=== PATIENT | male | born 1940 | race Caucasian/White ===

== ENCOUNTER 2019-06-16 11:50 | Inpatient (IN) ==
--- NOTE | 2019-06-16 12:07 | EKG Report ---
Test Performed on : 06/16/2019 12:05:39 PM Test Reason : weakness Blood Pressure : / mmHG Vent. Rate : 059 BPM Atrial Rate : 059 BPM P-R Int : 178 ms QRS Dur : 086 ms QT Int : 424 ms P-R-T Axes : 063 -44 077 degrees QTc Int : 419 ms Sinus bradycardia. Left axis deviation Abnormal ECG No previous ECGs available Unconfirmed Result
[2019-06-16] MEDS ORDERED: NS 1,000 ML IV ONE (12:36)
[2019-06-16 13:16] LABS: BASO# 0.15 X1000 (0.0-0.2); BASO% 0.9 % (0.0-0.8); EOS# 0.09 X1000 (0.0-0.7); EOS% 0.6 % (0.0-10.0); HEMATOCRIT 44.5 % (42.0-52.0); HEMOGLOBIN 14.7 g/dL (14.0-18.0); IMM GRAN# 0.03 X1000 (0.0-0.04); IMM GRAN% 0.2 % (0.0-0.5); LYMPH# 2.11 X1000 (1.2-3.4); LYMPH% 13.4 % (20.5-51.1); MCH 28.7 PG (27-31); MCV 86.7 FL (81-99); MONO# 1.44 X1000 (0.11-0.59); MONO% 9.1 % (1.7-9.3); MPV 12.7 FL (7.4-10.4); NEUT# 11.97 X1000 (1.4-6.5); NEUT% 75.8 % (42.2-75.2); PLT 226 X1000 (130-400); RBC 5.13 XMIL (4.7-6.1); RDW 14.2 % (11.5-14.5); WBC 15.79 X1000 (4.8-10.8)
[2019-06-16 13:36] LABS: ALB/GLOB RATIO 1.7; ALBUMIN 3.8 g/dL (3.5-5.0); CALCIUM 9.8 mg/dL (8.8-10.2); CREATININE 1.7 mg/dL (0.7-1.2); POTASSIUM 4.7 mmol/L (3.5-5.1); TOTAL BILIRUBIN 0.85 mg/dL (0.20-1.00); TOTAL PROTEIN 6.1 g/dL (6.3-8.3)
--- NOTE | 2019-06-16 14:14 | Diag Imaging Result Doc PS360 ---
EXAM: CT HEAD W/O CONTRAST INDICATION: Vertigo TECHNIQUE: This exam was performed using automated exposure control, adjustment of mA or kV according to patient size, and/or use of iterative reconstruction technique. COMPARISON: 08/09/2014 FINDINGS: There is patchy low attenuation in the periventricular and subcortical white matter suggesting mild microangiopathy. It is probably slightly worse than the previous study in 2015. There is no definite acute infarct given the limited sensitivity of CT versus MRI. There is no discrete intracranial mass, mass effect, or intracranial hemorrhage. The surrounding soft tissues and bony structures are essentially unremarkable. The mastoid air cells and middle ear cavities appear to be clear. There is a stable subcutaneous lipoma at the neck on the left. IMPRESSION: Suggestion of mild white matter microangiopathy that appears slightly worse than the previous study in 2014. No definite acute intracranial pathology by CT. Electronically signed by Ander Horner 06/16/2019 2:11 PM
[2019-06-16 15:33] LABS: URINE SOURCE CLEAN CATCH
[2019-06-16 15:41] LABS: BILIRUBIN URINE NEGATIVE (NEGATIVE); BLOOD URINE TRACE (NEGATIVE); COLOR YELLOW; GLUCOSE URINE NEGATIVE (NEGATIVE); KETONE URINE NEGATIVE (NEGATIVE); LEUKOCYTES URINE TRACE (NEGATIVE); NITRITE URINE NEGATIVE (NEGATIVE); PH URINE 6.5; PROTEIN URINE 50 mg/dL (NEGATIVE); SP GRAVITY URINE 1.019; TURBIDITY URINE CLEAR (CLEAR); UR EPITHELIAL CELLS <10 /HPF (<10); URINE BACTERIA NEGATIVE /HPF; URINE RBC <10 /HPF (<10); URINE WBC <10 /HPF (<10); UROBILINOGEN URINE NORMAL (NORMAL)
--- NOTE | 2019-06-16 15:55 | Diag Imaging Result Doc PS360 ---
EXAM: CHEST-2 VIEWS HISTORY: dizziness TECHNIQUE: Two views COMPARISON: 08/13/2014 FINDINGS: The lungs are well expanded. The heart is not enlarged. The vessels are not distended. There are no infiltrates. No pleural effusions. IMPRESSION: No acute abnormality. Electronically signed by Dick Spears 06/16/2019 3:53 PM
--- NOTE | 2019-06-16 19:35 | PROVIDER DOCUMENTATION ---
This chart was entered by Bella Ramirez Scribe, acting as scribe for Natalia Nixon MD. HPI-General Adult - General Chief Complaint: Weakness Stated Complaint: DIZZINESS/FALLING Time Seen by Provider: 06/16/19 12:18 Source: patient, family () Allergies/Adverse Reactions: Patient Allergies Allergy/AdvReac Type Severity Reaction Status Date / Time latex Allergy Unknown Verified 06/16/19 12:47 Home Medications: Home Medication List Medication Instructions Recorded Confirmed Last Taken Type Finasteride 5 mg PO DAILY 08/09/14 06/16/19 06/16/19 History Hydrocodone/APAP 10 mg/325 mg 1 each PO Q4-6H PRN PRN 08/09/14 06/16/19 06/16/19 History [[place]-10] Meclizine HCl [Antivert] 25 mg PO TID PRN 08/09/14 06/16/19 06/16/19 History Montelukast [Singulair] 10 mg PO DAILY PRN 08/09/14 06/16/19 06/16/19 History Simvastatin 80 mg PO HS 08/09/14 06/16/19 06/15/19 History Tamsulosin [Flomax] 0.4 mg PO DAILY 08/09/14 06/16/19 06/16/19 History Allopurinol [Zyloprim] 1 tab PO DAILY 06/16/19 06/16/19 06/16/19 History Atenolol 1 tab PO DAILY 06/16/19 06/16/19 06/16/19 History Gabapentin 1 tab PO 4XDAY 06/16/19 06/16/19 06/16/19 History Omeprazole 1 cap PO DAILY 06/16/19 06/16/19 06/16/19 History Tadalafil [Cialis] 1 tab PO PRN PRN 06/16/19 06/16/19 Unknown History - History of Present Illness -Gen Adult Nature of Presenting Problems: 78 yowm with PMH of vertigo on meclizine, CKD, chornic back pain on [place], enlarged prostate with chronic LUTS, who presents to the ed with c/o dizziness, cough, and frequent falls for 1 week. He denies recent changes in his medi cations. He reports a sensation of movement even when sitting still. Patient's sister at bedside is concerned that he hasn't been drinking or eating well over the past week. He denies cp, sob, syncope, palpitations, recent travel or sick contacts. 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 worse with: movement Associated Symptoms: reports: cough, dizziness. denies: chest pain, fever/chills, headaches, nausea, shortness of breath, vomiting Similar Symptoms Previously?: Yes (hx of vertigo) Recently seen or treated by another doctor?: No Review of Systems - Adult - REVIEW OF SYSTEMS - ADULT Constitutional: denies: chills, fever, fatique Eyes: denies: blurred vision, double vision Ears, Nose, Mouth & Throat: reports: no symptoms reported Cardiovascular: denies: chest pain, palpitations Respiratory: reports: see HPI, cough. denies: shortness of breath, wheezing Gastrointestinal: denies: abdominal pain, diarrhea, nausea, vomiting Genitourinary: reports: see HPI Musculoskeletal: reports: see HPI, back pain (chronic) Integumentary: reports: no symptoms reported Neurological: reports: see HPI, dizziness/vertigo, loss of balance. denies: ataxia, headache/migraines, slurred speech, syncope Psychiatric: reports: no symptoms reported Endocrine: reports: no symptoms reported Hematologic/Lymphatic: reports: no symptoms reported Allergic/Immunologic: reports: no symptoms reported All Other Systems: Reviewed and Negative Past History - Adult - PAST MEDICAL HISTORY-ADULT Review of Records: reports: Old Records Reviewed, Nursing Assessment Review, Medications Reviewed, Social history reviewed & non-contributory. Major Childhood Illnesses: reports: denies history Cardiovascular: reports: HTN Respiratory: reports: denies history Gastrointestinal: reports: denies history Genitourinary: reports: other (prostate problems) Musculoskeletal: reports: chronic pain (takes norco 10 daily), neck/back injury Neurological: reports: denies history Psychiatric: reports: denies history Endocrine/Immune: reports: denies history Other Conditions: reports: denies history - PRIOR SURGERIES/PROCEDURES Surgical/Procedure History: reports: recent surgery (neck 12/03/18), back/neck (lumbar spine sx) - IMMUNIZATION STATUS Childhood Immunizations: See Nurse Assessment Flu Vaccine: See Nurse Assessment - FAMILY HISTORY Family History: reviewed, not pertinent - SOCIAL HISTORY Smoking: denies Substance Use: denies Living Situation: family Physical Exam-General - PHYSICAL EXAM-ADULT Initial Vital Signs Reviewed: Yes (BP-98/54) - CONSTITUTIONAL General Appearance: appears well, alert, no apparent distress, other (pt is tremulous on exam) - EYES Eyes: PERRL/EOMI - HEAD, EARS, NOSE, MOUTH & THROAT HENMT: normal ENT inspection, TMs normal. negative: moist mucous membranes (dry oral) - NECK Neck: non-tender, full range of motion, supple, normal inspection - RESPIRATORY Respiratory: chest non-tender, lungs clear, normal breath sounds - CARDIOVASCULAR Cardiovascular: normal peripheral pulses, regular rate, rhythm - CHEST (BREASTS) Chest/Breast: deferred - GASTROINTESTINAL (ABDOMEN) Abdominal Exam: normal bowel sounds, non tender, soft - GENITOURINARY Male Genitalia: deferred Rectal Exam: deferred Hemoccult Exam: deferred - LYMPHATIC Lymphatic: no adenopathy - MUSCULOSKELETAL Back Exam: no CVA tenderness, no vertebral tenderness Extremity: normal range of motion, non-tender, no pedal edema, no calf tenderness, normal capillary refill, pelvis stable, tenderness (bilateral knees with abrasions noted from past fall) - SKIN Integumentary: normal color, normal turgor, warm/dry - NEUROLOGIC Neurologic: grossly normal - PSYCHIATRIC Psych/Mental Status: normal mood/affect, normal thought content, normal thought process, oriented x 3 Progress - PLAN OF CARE/RESULTS Progress/Plan/Lab Results: Vital Signs - 8 hr 06/16/19 11:57 Temperature 98.2 F Pulse Rate 63 Respiratory Rate 20 Blood Pressure 98/54 O2 Sat by Pulse Oximetry 96 Orders Category Date Time Status Saline Loc NOW Care 06/16/19 12:[address] HEAD W/O CONTRAST [CT] Stat Exams 06/16/19 12:30 Ordered CBC WITH ELECTRONIC DIFF [HEME] Stat Lab 06/16/19 12:32 Uncollected CK PROFILE [SP CHEM] Stat Lab 06/16/19 12:37 Uncollected COMPREHENSIVE METABOLIC PANEL [CHEM] Stat Lab 06/16/19 12:32 Uncollected TROPONIN T HIGH SENSITIVITY Stat Lab 06/16/19 12:37 Uncollected URINALYSIS W/POSS RFLX CULT [URINALYSIS] Stat Lab 06/16/19 12:32 Uncollected Ns 1000 ml IV Bolus X1 Med 06/16/19 12:36 Ordered 0.9% Sodium Chloride Inj [Ns] 1,000 ml IV 999 mls/hr EKG [EKG] Stat Ther 06/16/19 12:02 Draft 1320: Positive orthostatic changes. 1400: Elevated troponin, no acute ekg changes, patient denies cp. Result Diagrams: 06/16/19 13:00 06/16/19 13:00 - REASSESSMENT Reassessment #1 Time Reassessed: 15:30 Status: unchanged Reassessment #2 Time Reassessed: 17:50 (Unsteady gait, patient and family requesting admission for PT/Rehab and due to concern for frequent falls as patient lives alone) Status: unchanged Reassessment #3 Time Reassessed: 19:30 (Repeat ekg unchanged, elevated troponin trending down, elevation possibly 2/2 CKD, will proceed with admission to observation ) - EKG 1 Time of EKG reading by physician:: 12:10 EKG Read and Signed by:: Natalia Nixon EKG Interpretation (*Must complete 3 of following elements*): Abnormal Rate: 59 Rhythm: sinus Leroy: left [place] Interval: normal Prior EKG Comparison: no prior EKG (When compared to telemetry strips form 2015, no significant change noted) 2 Time of EKG reading by physician:: 18:20 EKG Read and Signed by:: Natalia Nixon EKG Interpretation (*Must complete 3 of following elements*): Abnormal Rate: 61 Rhythm: NSR Leroy: left [place] Interval: normal Prior EKG Comparison: unchanged from prior - CT/MRI 1 CT Study: Head Impression: See EMR Report (EXAM: CT HEAD W/O CONTRAST INDICATION: Vertigo TECHNIQUE: This exam was performed using automated exposure control, adjustment of mA or kV according to patient size, and/or use of iterative reconstruction technique. COMPARISON: 08/09/2014 FINDINGS: There is patchy low attenuation in the periventricular and subcortical white matter suggesting mild mi croangiopathy. It is probably slightly worse than the previous study in 2015. There is no definite acute infarct given the limited sensitivity of CT versus MRI. There is no discrete intracranial mass, mass effect, or intracranial hemorrhage. The surrounding soft tissues and bony structures are essentially unremarkable. The mastoid air cells and middle ear cavities appear to be clear. There is a stable subcutaneous lipoma at the neck on the left. IMPRESSION: Suggestion of mild white matter microangiopathy that appears slightly worse than the previous study in 2015. No definite acute intracranial pathology by CT. Electronically signed by Ander Horner 06/16/2019 2:11 PM 06/16/19 1411 Int erpreting Physician: Ander Horner MD Dictated Date/Time: 06/16/19 1410 cc: Natalia Nixon MD; Quincy Marroquin MD) - CONSULTS/PCP/HOSPITALIST Notification #1 *Consult/PCP/Hospitalist*: Dr. Gentile Time Discussed: 19:49 Consult Disposition: Admit (To observation) Departure - Departure Date of Disposition Decision: 06/16/19 Time of Disposition Decision: 19:30 DIAGNOSIS: Vertigo, Dehydration, Orthostatic dizziness, Elevated troponin, Frequent falls, Debility CKD (chronic kidney disease) Qualifiers: Chronic kidney disease stage: stage 3 (moderate) Qualified Code(s): N18.3 - Chronic kidney disease, stage 3 (moderate) Leukocytosis Qualifiers: Leukocytosis type: unspecified Qualified Code(s): D72.829 - Elevated white blood cell count, unspecified Disposition: ADMITTED INPATIENT 09 Certified Medical Emergency: Emergent Condition: Stable Referrals and Follow-Ups: Quincy Marroquin MD [Primary Care Provider] - - Critical Care Note This patient required my direct & personal management of CC.: No Attestation - Physician/ EDITH Attestation Patient care was provided by Advanced Practice Provider:: No The physician spent face to face time with patient:: Yes Advanced Practice Provider documentation review:: Supervising physician onsite and consulted in the evaluation and care of this patient. The physician did have a face to face encounter with the patient. This chart was documented by the indicated scribe, (Bella Ramirez Scribe) and accurately reflects the services I performed and decisions made by me, Natalia Nixon MD, as attested by the provider's signature.
[2019-06-16] MEDS ORDERED: ANTIVERT PO ONE (19:47)
[2019-06-16] MEDS ORDERED: XYLOCAINE 2% JELLY UROJECT TOP ONE (21:16)
[2019-06-16] MEDS ORDERED: NORCO-10 PO ONE (21:20)
[2019-06-16] MEDS ORDERED: NORCO-7.5 PO ONE (21:22)
[2019-06-16 21:55] LABS: INR 1.14; PROTIME 14.8 Seconds (11.0-16.0); PTT 29.8 Seconds (22.3-41.8)
[2019-06-17] MEDS: NS 1,000 ML IV SCH ×2 (00:56→15:53)
[2019-06-17] MEDS: ROCEPHIN 1 GM in NS 50 ML IV SCH ×2 (01:10→23:30)
[2019-06-17] MEDS ORDERED: ZOFRAN IV PRN (01:28)
--- NOTE | 2019-06-17 04:17 | HISTORY AND PHYSICAL ---
PRIMARY CARE PROVIDER: Dr. Marroquin in [place], [place]. DATE AND TIME: 06/16/2019 at 2100. CHIEF COMPLAINT: Dizziness. HISTORY OF PRESENT ILLNESS: Mr. Klein is an 78-year-old male who presented to the ER complaining of dizziness. The patient states that approximately a little over 1 week ago that he began having dizziness. He reports that this when he goes from a sitting to a standing position or when he has been lying down and tries to get to a sitting or standing position. The patient states he does have a history of vertigo and does take meclizine for this. He states that normally when this starts, he takes his meclizine and this does improve, though even with taking his meclizine his dizziness continued to the point where he began to have episodes when he would go from a lying or sitting to a standing position, he will become dizzy and very weak and would fall. He reports that he fell once today, a few times yesterday and has fallen a few times over the last week. The patient denies any recent new medications or any changes to his current medications. He did report that he did have [id number] use of a medicine called Prevagen, though other than this, he denies any other [id number] medication use. He denies any headache. He denies any visual changes. Other than the weakness he experiences upon sitting and standing, he denies any other weakness. He reports this is a generalized weakness. This is not unilateral. He denies any numbness or tingling. He as well as his sister denies noticing him having any speech disturbance. The patient does have a history of back surgery and did develop a left footdrop after this surgery and there is a little deficit in his gait related to this, though this is not of new onset. His sister, who is at bedside, denies noticing him having any new changes in his gait or him giving to one side or leaning to one side either when walking, standing, or sitting. He denies any chest pain. He denies any shortness of breath or cough. He denies any upper respiratory symptoms, sinus congestion, pressure, or drainage. He denies any ear pain. He did report that he felt as though he was hearing a buzzing sound in his right ear. He denies any nausea, vomiting, or diarrhea. He denies any hematochezia or melena. The patient was not reporting abdominal pain, though was reporting a lot of pressure in his lower abdomen. He reported to me that he had tried to use the urinal a few times in the ER since he gave his initial urine sample, though could not urinate. The patient does report that he has been having urinary frequency and does get up 3 to 4 times in the middle of the night to urinate, though was only passing small amounts at a time. He states he is also straining to go as well. He does have a history of BPH and urinary retention in the past. He has had to have Barrow catheters for periods of time secondary to this. He denies any pain, numbness, tingling, or swelling in extremities. He denies any fever, body aches, or chills. Upon my evaluation in the ER, the patient was resting in the ER stretcher. He was in no acute distress. He was awake, alert, and able to answer questions appropriately. The patient was stating he was quite uncomfortable. He was experiencing a lot of lower abdominal pressure. Given this and his history of BPH, we did go ahead and obtain a bladder scan which did show that he had 638 mL of urine in his bladder. We did try to get the patient to attempt to use the urinal one last time, though he was unable to urinate. We did place a Barrow catheter and, since that time, the patient's abdominal pressure has resolved. He did have some leukocytosis noted with a white blood cell count of 15,790. BUN was 26, creatinine was 1.7 with a GFR of 39. Unfortunately, the patient has not had any recent labs performed here since 2014. It does look as though he may have a underlying history of chronic kidney disease, and he does report this, though we are not sure what his baseline is at this time. All other electrolytes within normal limits. CK was 97 and troponin was 43. Initial EKG noted sinus bradycardia at a rate of 59 and repeat was normal sinus rhythm at a rate of 61. Initial blood pressure was 98/54 with a MAP of 69. They did perform orthostatics in the ER, which the patient did tilt. He went from a lying blood pressure of 174/71 to a sitting blood pressure of 111/50. They did provide a 1 L normal saline bolus in the ER. Urinalysis did show trace blood and trace leukocytes and urine culture has been ordered. They did perform a chest x- ray which showed no acute abnormalities. They performed a CT of the head noncontrast which showed no definite acute intracranial pathology. The patient was placed inpatient admission for further treatment evaluation of his dizziness and weakness. REVIEW OF SYSTEMS: A 14-point review of systems was conducted with the patient and all were negative except for pertinent positives mentioned above in HPI. PAST MEDICAL HISTORY: 1. Hypertension. 2. Benign prostatic hypertrophy. 3. Vertigo. 4. Orthostatic hypotension. 5. 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 6. Kidney stones. 7. Questionable history of chronic kidney disease. 8. Hyperlipidemia. 9. Gastroesophageal reflux disease. 10. Gout. PAST SURGICAL HISTORY: 1. Cervical fusion. 2. Low back surgery, which consisted of a lumbar decompressive laminectomy with diskectomy at L3- L5 in 2014. SOCIAL HISTORY: There is no known history of tobacco, alcohol or illicit drug use. The patient states that he does live alone, though does have family that comes by and is able to check on him. This includes his sister and a friend. The patient does require ambulatory assistance of a cane and a walker at times. FAMILY HISTORY: Positive for his mother having a history of congestive heart failure. His father had a history of coronary artery disease and did have a myocardial infarction in his 60s. He has one brother who has a history of coronary artery disease and does have sisters who have history of renal cancer, breast cancer, and leukemia. ALLERGIES: Patient does report allergies to latex. HOME MEDICATIONS: 1. Allopurinol 300 mg p.o. daily. 2. Atenolol 100 mg p.o. daily. 3. Finasteride 5 mg p.o. daily. 4. Gabapentin 300 mg p.o. 4 times a day. 5. [place] 10 mg 1 tablet p.o. q.4-6 hours p.r.n. The patient states that he usually takes this just 3 times a day. 6. Antivert #25 mg p.o. t.i.d. p.r.n. for dizziness. 7. Singulair 10 mg p.o. daily p.r.n. 8. Omeprazole 40 mg capsule p.o. daily. 9. Simvastatin 80 mg p.o. at bedtime. 10. Cialis 5 mg tablet half a tablet p.o. p.r.n. 11. Flomax 0.4 mg p.o. daily. DIAGNOSTIC DATA: White blood cell count is 15,790, hemoglobin 14.7, hematocrit 44.5, platelet count is 226,000. PT 14.8, INR 1.14, PTT is 29.8. Sodium 139, potassium 4.7, chloride 100, serum bicarbonate is 24, BUN 26, creatinine 1.7 with a GFR 39, glucose 121, calcium 9.8, magnesium 2. Liver function tests within normal limits. CK 97, troponin T high sensitivity was 43 with a repeat of 35. Plasma lactate of 1. Urinalysis was obtained via clean catch and was positive for protein, trace blood, trace leukocytes. It was negative for glucose, ketones, nitrites, white blood cells, or bacteria. EKG initial showed sinus bradycardia at a rate of 59 with a QTc of 419. Repeat EKG did show normal sinus rhythm at a rate of 61. Chest x-ray showed no acute abnormality. CT of the head without contrast showed suggestion of mild white matter microangiopathy that appears slightly worse than on the previous study in 2015, but no definite acute intracranial pathology per CT. This report was per Radiology. PHYSICAL EXAMINATION: VITAL SIGNS: Most recent vital signs I have are temperature 98.2 degrees, heart rate 56, respirations 18, blood pressure is 186/76 with oxygen saturation of 95% on room air. GENERAL: Mr. Klein is a pleasant 78-year-old male. He was resting in the ER stretcher. He is in no acute distress. He was awake, alert and answered questions appropriately. HEENT: Head is atraumatic, normocephalic. Pupils are equal, round, reactive to light, were 3 mm bilaterally and brisk. EOMs are intact. Bilateral tympanic membranes were intact, pearly tejada in color, have positive light reflexes, and there is no erythema, lesions, or exudates noted. Oral mucosa is moist. Oropharynx is clear. NECK: Supple. Trachea midline. No carotid bruits noted upon auscultation bilaterally. CARDIOVASCULAR: Patient has S1-S2 present. No gallops or rubs appreciated, though the patient may have a very slight 1/6 systolic murmur noted. He does have a slightly bradycardic rate in the high 50s that is regular. ABDOMEN: Soft, nontender, nondistended. Bowel sounds are present in all 4 quadrants and were normoactive. EXTREMITIES: No cyanosis or edema noted. Pulse, motor and sensory are intact in all 4 extremities. Radial and pedal pulses are 2+ bilaterally. INTEGUMENTARY: The patient's skin is pink, warm, and dry. NEUROLOGICAL: Patient is alert and oriented to person, place, time, and situation. He is able to move all extremities. He does have equal muscle strength and hand grasps bilaterally. The patient does have equal muscle strength in his legs bilaterally though does have noted left footdrop. This is not of new onset. This has been present since his low back surgery. He has no arm drift noted. The patient does appear to have maybe a slightly drooped eyelid on the right and a very small facial droop noted at the corner of the right side of his mouth, though his sister states this is not of new onset and that this has been present. The patient denies any previous history of known stroke. ASSESSMENT AND PLAN: 1. Dizziness/weakness. This could be orthostatic in nature. The patient does have a history of orthostatic hypotension. He also does take quite a few medicines that could be contributing to his weakness, dizziness and orthostatic hypotension. We have held these medicines at this time. We will continue to rule out any further possible cardiac or neurologic involvement. We will repeat a series of cardiac enzymes. We will repeat EKG in the morning. We have also ordered for him to have echocardiogram and carotid ultrasound. He will be on continuous cardiac telemetry. We will do q.4 h. vital signs and neurological checks. He did receive a 1 liter normal saline bolus in the ER. We will provide some IV hydration as well and we will repeat his CBC, BMP, cardiac enzymes, EKG, and orthostatic blood pressures in the morning. We are going to give him a few doses of meclizine for his dizziness and we will monitor and re-evaluate his response to see if this helps. We will continue to follow. 2. Elevated troponin. The patient's troponin was slightly elevated upon initial check, though on second check, it was decreasing. The patient has not reported any chest pain since his arrival. EKG did not show any acute changes. We will repeat another EKG in the morning. 3. Leukocytosis. This could be multifactorial. The patient has reported recent falls as in 1 today before his arrival to the ER and a few over the past few days. This could be reactive secondary to that, though he has been reporting some urological symptoms such as urinary frequency and having to strained to urinate. He does have a history of BPH and urinary retention. Given this, we will go ahead and place him with antibiotic coverage of Rocephin 1 g IV q.24 hours. We have placed orders for urine culture. 4. Urinary tract infection. We will continue treatment as mentioned above with IV Rocephin. We are awaiting urine culture results. 5. Urinary retention. The patient does have a history of this in the past. This was noted on his admission in 2014. We did a bladder scan. After multiple attempts in the ER, he was unable to urinate. He was holding 638 mL of urine in his bladder. We have placed a Barrow catheter at this time. He does have a history of BPH. He does take medicines of finasteride, Flomax, and Cialis, though these have been held at this time given his dizziness, weakness and orthostatic hypotension. We will continue to follow. 6. History of hypertension. The patient does take atenolol, though we have held this at this time. He is borderline bradycardic as well as having dizziness, weakness, and possible orthostatic hypotension. His orthostatic blood pressure in the ER was positive. He did tilt. We will hold his blood pressure medication at this time. We are providing some IV hydration. We will recheck orthostatic blood pressures in the morning. 7. Venous thromboembolism (VTE) prophylaxis provided with sequential compression devices. The patient has been placed on the medical floor with telemetry. He will have vital signs and neurological checks q.4 hours. Will do strict intake and output. He will be on a heart healthy diet. Further orders and recommendations pending hospital course, diagnostic studies, and physician evaluation. Dictated by MARIE Arevalo for Chuy Gentile MD I have performed a face to face diagnostic evaluation. Labs/Xrays- reviewed. Exam- Chest- clear, CV- regular, Abd- soft, Neuro - non focal. A/P-Dizziness- Admit, check echo, meclizine prn. Dr. Gentile cc: Chuy Gentile MD [facility]
[2019-06-17 05:00] LABS: BASO# 0.06 X1000 (0.0-0.2); BASO% 0.5 % (0.0-0.8); EOS# 0.09 X1000 (0.0-0.7); EOS% 0.8 % (0.0-10.0); HEMATOCRIT 42.8 % (42.0-52.0); IMM GRAN# 0.02 X1000 (0.0-0.04); IMM GRAN% 0.2 % (0.0-0.5); LYMPH# 2.99 X1000 (1.2-3.4); LYMPH% 26.4 % (20.5-51.1); MCH 28.3 PG (27-31); MCHC 32.7 g/dL (33-37); MCV 86.5 FL (81-99); MONO# 1.29 X1000 (0.11-0.59); MONO% 11.4 % (1.7-9.3); MPV 12.3 FL (7.4-10.4); NEUT# 6.86 X1000 (1.4-6.5); NEUT% 60.7 % (42.2-75.2); PLT 190 X1000 (130-400); RBC 4.95 XMIL (4.7-6.1); WBC 11.31 X1000 (4.8-10.8)
[2019-06-17 05:16] LABS: CREATININE 1.3 mg/dL (0.7-1.2); POTASSIUM 4.2 mmol/L (3.5-5.1)
[2019-06-17] MEDS: NORCO-10 PO PRN ×2 (06:01→20:26)
--- NOTE | 2019-06-17 07:58 | EKG Report ---
Test Performed on : 06/17/2019 06:45:22 AM Test Reason : Dizziness Blood Pressure : / mmHG Vent. Rate : 055 BPM Atrial Rate : 055 BPM P-R Int : 188 ms QRS Dur : 092 ms QT Int : 438 ms P-R-T Axes : 058 -44 025 degrees QTc Int : 419 ms Sinus bradycardia. Left axis deviation Abnormal ECG When compared with ECG of 16-JUN-2019 18:11, (Unconfirmed) No significant change was found Confirmed by Garth TAYLOR, Surendra Coyle ([id number]) on 06/18/2019 7:29:52 AM
--- NOTE | 2019-06-17 08:11 | EKG Report ---
Test Performed on : 06/16/2019 6:11:52 PM Test Reason : dizziness Blood Pressure : / mmHG Vent. Rate : 061 BPM Atrial Rate : 061 BPM P-R Int : 160 ms QRS Dur : 090 ms QT Int : 420 ms P-R-T Axes : 025 -43 060 degrees QTc Int : 422 ms Normal sinus rhythm. Left axis deviation Abnormal ECG When compared with ECG of 16-JUN-2019 12:05, (Unconfirmed) No significant change was found Unconfirmed Result
[2019-06-17] MEDS ORDERED: NON-FORMULARY MED (Omeprazole 1 CAP) PO SCH (09:00)
--- NOTE | 2019-06-17 10:37 | PROGRESS NOTE ---
DATE: 06/17/2019 SUBJECTIVE: Patient reports feeling better. Dizziness is not getting better. Denies any headache, nausea, or vomiting. OBJECTIVE: Vital Signs: Temperature 97.6, heart rate 61, respiratory rate 16, blood pressure 125/63, O2 saturation 96% on room air. General examination: This is a 88-year-old male, lying in bed, in no acute distress. Cardiovascular exam: S1 and S2 heard. No murmurs, gallops, or rubs. Regular rate and rhythm. Respiratory exam: Clear bilaterally to auscultation. No work of breathing or using accessory muscles. Abdomen: Soft, nontender to palpation. Bowel sounds present. No organomegaly. Extremities: No clubbing, cyanosis, or edema. Peripheral pulses present in both legs. Neurological exam: Patient is alert and oriented x3. Moves 4 extremities. LABORATORY DATA: White cell count 11.31, hemoglobin 14.0, hematocrit 42.8, platelets 190,000 with a creatinine that is 1.3 today. ASSESSMENT AND PLAN: 1. Dizziness. At admission,he was told that could be orthostatic in nature. I have seen orthostatic vital signs done yesterday that showed insignificant drop in blood pressure so at this point, patient is receiving intravenous fluids. Blood pressure is now much better. We will continue with the same management. 2. Urinary tract infection. The patient started on intravenous Rocephin yesterday and white cell count is getting better. We will continue with same management. We will wait for the final results of urine culture. We will restart Flomax in case this patient continues to have problems with urinary retention. 3. Hypertension. Because of dizziness, that medication has been held. We will continue to monitor blood pressure and heart rate every 6 hours. 4. Deep venous thrombosis prophylaxis, on sequential compression devices. 5. Disposition. We will continue to monitor the patient closely. Echocardiogram and carotid ultrasound has been ordered. We will see what it shows tomorrow. cc: Kristian Glez MD
[2019-06-17] MEDS: PRILOSEC PO SCH (10:47)
[2019-06-17] MEDS: ANTIVERT PO SCH ×5 (10:48→16:00)
--- NOTE | 2019-06-17 15:36 | ECHO REPORT ---
ORDER DATE: 06/17/2019 INDICATION: Hypertension, hyperlipidemia, dizziness. FINDINGS: 1. Right atrium appears in normal size. 2. Mild tricuspid regurgitation. RV systolic pressure of 45. 3. Normal RV size and systolic function. 4. No significant pulmonic insufficiency. 5. Mild left atrial enlargement with a volume index of 33. 6. No mitral prolapse. Mild mitral regurgitation. No mitral stenosis. 7. Normal LV size, end-diastolic dimension of 4.9 cm. Mild left ventricular hypertrophy with a posterior and interventricular septal wall thickness 1.2 cm each. Normal LV systolic function. Estimated EF of 65% with normal wall motion. 8. Aortic valve opens well. It is trileaflet. Mild insufficiency. No stenosis. 9. Aorta appears normal in visualized segments. 10. No pericardial effusion seen. 11. Evidence for grade 1 diastolic dysfunction. cc: Kenneth Hardy MD
[2019-06-17] MEDS: APRESOLINE IV PRN ×2 (16:59→20:28)
[2019-06-17] MEDS ORDERED: SINGULAIR PO PRN (17:18)
[2019-06-17] MEDS: TENORMIN PO SCH (17:58)
[2019-06-17] MEDS: NEURONTIN PO SCH (20:26)
[2019-06-17] MEDS: NORVASC PO SCH (20:26)
[2019-06-17] MEDS: VASOTEC IV SCH (23:36)
[2019-06-18] MEDS: PRILOSEC PO SCH (06:15)
[2019-06-18] MEDS: NORCO-10 PO PRN ×2 (06:19→18:46)
[2019-06-18 08:02] LABS: BASO# 0.04 X1000 (0.0-0.2); BASO% 0.3 % (0.0-0.8); EOS# 0.22 X1000 (0.0-0.7); EOS% 1.6 % (0.0-10.0); HEMATOCRIT 44.5 % (42.0-52.0); HEMOGLOBIN 14.3 g/dL (14.0-18.0); IMM GRAN# 0.03 X1000 (0.0-0.04); IMM GRAN% 0.2 % (0.0-0.5); LYMPH# 2.86 X1000 (1.2-3.4); LYMPH% 20.6 % (20.5-51.1); MCH 27.6 PG (27-31); MCHC 32.1 g/dL (33-37); MCV 85.9 FL (81-99); MONO# 1.71 X1000 (0.11-0.59); MONO% 12.3 % (1.7-9.3); MPV 12.5 FL (7.4-10.4); PLT 198 X1000 (130-400); RBC 5.18 XMIL (4.7-6.1); RDW 14.1 % (11.5-14.5); WBC 13.86 X1000 (4.8-10.8)
--- NOTE | 2019-06-18 08:09 | PROGRESS NOTE ---
DATE: 06/18/2019 SUBJECTIVE: Patient reports feeling fine. Dizziness is getting better. Denies any headache, nausea, vomiting. OBJECTIVE: Vital Signs: Temperature 98.2 degrees, heart rate 63, respiratory rate 14, blood pressure 151/62, O2 saturation 97% on room air. General Examination: This is an 78-year-old, male, lying in bed, in no acute distress. Cardiovascular Examination: S1 and S2 heard. No murmurs, gallops, or rubs. Regular rate and rhythm. Respiratory Examination: Clear bilaterally to auscultation. No work of breathing or using accessory muscles. Abdomen: Soft, nontender to palpation. Bowel sounds present. No organomegaly. Extremities: No clubbing, cyanosis, or edema. Peripheral pulses present in both legs. Neurological Examination: The patient is alert and oriented x3. Moves 4 extremities. Laboratory Data: There are no labs from today. ASSESSMENT AND PLAN: 1. Dizziness. Apparently that was secondary to dehydration. He had been orthostatic at admission. We will check orthostatic vital signs and see how he does. We will continue with intravenous fluids. Blood pressure actually has been going through the roof so we restarted home medications and blood pressure is much better. 2. Urinary tract infection. Patient is on Rocephin. White cell count has improved from the day before yesterday but we do not have any results of labs today. We will continue with current management. The urine culture showed no growth but because the white cell count is getting better, we will continue and complete 7 days of antibiotics. We will continue also with Flomax as well. 3. Hypertension. We will continue with current medications. Blood pressure has been very high but now it is much better controlled. 4. Deep vein thrombosis prophylaxis with sequential compression devices. 5. Disposition. I think, at this point, if the patient continues to improve and vital signs are better, not badly dizzy, I think we can discharge this patient tomorrow. cc: Kristian Glez MD
[2019-06-18 08:35] LABS: ALBUMIN 3.4 g/dL (3.5-5.0); CALCIUM 9.2 mg/dL (8.8-10.2); CREATININE 1.3 mg/dL (0.7-1.2); POTASSIUM 4.1 mmol/L (3.5-5.1)
[2019-06-18] MEDS: ANTIVERT PO SCH (08:44)
[2019-06-18] MEDS: TENORMIN PO SCH (08:44)
[2019-06-18] MEDS: ZYLOPRIM PO SCH (08:44)
[2019-06-18] MEDS: PROSCAR PO SCH (08:44)
[2019-06-18] MEDS: NORVASC PO SCH ×2 (08:44→21:51)
[2019-06-18] MEDS: NEURONTIN PO SCH ×4 (08:44→21:50)
[2019-06-18] MEDS: VASOTEC IV SCH ×3 (08:45→21:51)
--- NOTE | 2019-06-18 14:06 | Carotid Study ---
DATE: 06/17/2019 BILATERAL DUPLEX COLOR FLOW IMAGING OF THE CAROTID ARTERIES PERFORMED USING THE i[employer]oriesID E9 ULTRASOUND SYSTEM WITH A 9 L-D TRANSDUCER: REFERRING PHYSICIAN: Florencio. MUSIC THERAPY TEACHER: JOSÉ Gustafson. INDICATIONS: Dizziness. FINDINGS: An 78-year-old male. The velocities in cm/sec of both carotid systems were reviewed. There is forward flow in the right vertebral artery. The right ICA/CCA ratio is 1.18 corresponding to percent stenosis of 0 to 39 percent. The left vertebral has forward flow. The left ICA/CCA ratio is 1.07 corresponding to percent stenosis of 0 to 39 percent. INTERPRETATION: Mild atherosclerotic disease of the distal common and internal carotid arteries bilaterally without evidence of a hemodynamically significant lesion in either carotid system. cc: Dorcas Ramirez MD
[2019-06-19] MEDS: ROCEPHIN 1 GM in NS 50 ML IV SCH (00:58)
[2019-06-19] MEDS: NORCO-10 PO PRN ×2 (04:36→15:56)
[2019-06-19] MEDS: PRILOSEC PO SCH (06:14)
[2019-06-19 08:23] LABS: BASO# 0.04 X1000 (0.0-0.2); BASO% 0.4 % (0.0-0.8); EOS# 0.35 X1000 (0.0-0.7); EOS% 3.4 % (0.0-10.0); HEMATOCRIT 43.1 % (42.0-52.0); HEMOGLOBIN 13.9 g/dL (14.0-18.0); IMM GRAN# 0.03 X1000 (0.0-0.04); IMM GRAN% 0.3 % (0.0-0.5); LYMPH# 3.36 X1000 (1.2-3.4); LYMPH% 32.7 % (20.5-51.1); MCH 27.9 PG (27-31); MCHC 32.3 g/dL (33-37); MCV 86.4 FL (81-99); MONO# 1.27 X1000 (0.11-0.59); MONO% 12.4 % (1.7-9.3); MPV 12.7 FL (7.4-10.4); NEUT# 5.21 X1000 (1.4-6.5); NEUT% 50.8 % (42.2-75.2); PLT 209 X1000 (130-400); RBC 4.99 XMIL (4.7-6.1); RDW 14.4 % (11.5-14.5); WBC 10.26 X1000 (4.8-10.8)
[2019-06-19] MEDS: NORVASC PO SCH ×2 (08:34→21:31)
[2019-06-19] MEDS: TENORMIN PO SCH (08:34)
[2019-06-19] MEDS: VASOTEC IV SCH ×2 (08:34→21:31)
[2019-06-19] MEDS: ZYLOPRIM PO SCH (08:34)
[2019-06-19] MEDS: PROSCAR PO SCH (08:34)
[2019-06-19] MEDS: NEURONTIN PO SCH ×4 (08:34→21:31)
--- NOTE | 2019-06-19 08:48 | PROGRESS NOTE ---
DATE: 06/19/2019 SUBJECTIVE: Patient reports feeling okay. He reports no more dizziness. No nausea or vomiting. No headache. OBJECTIVE: Vital Signs: Temperature 98.6, heart rate 62, respiratory rate 18, blood pressure 147/56, and O2 saturation 97% on room air. General: This is an 78-year-old male lying in bed in no acute distress. Cardiovascular: S1, S2 heard. No murmurs, gallops, or rubs. Regular rate and rhythm. Respiratory: Clear bilaterally to auscultation. No work of breathing or using accessory muscles. Abdomen: Soft, nontender to palpation. Bowel sounds present. No organomegaly. Extremities: No clubbing, cyanosis, or edema. Peripheral pulses present in both legs. Neurological: Patient is alert and oriented x3. Moves all 4 extremities. LABORATORY DATA: Pending at the time of my dictation. ASSESSMENT AND PLAN: 1. Dizziness. Apparently, secondary to dehydration. Patient is receiving IV fluids. He is not complaining of more dizziness. We are going to check vital signs today. We will continue with IV fluids. 2. UTI. Patient is on Rocephin. Even though the urine culture is negative, the fact that this patient had an elevated white cell count and he was complaining of mild dysuria, we will definitely complete 7 days of antibiotics. 3. Hypertension. Blood pressure is in the range of 140s and 150s. Systolic blood pressure. We will continue to monitor. 4. Physical deconditioning. Physical Therapy has been consulted. We will see how this patient does. 5. Disposition: Depending upon PT evaluation, we will see if this patient can go home with physical therapy or if he needs to go to rehab facility. We will see what physical therapy notes shows. cc: Krisitan Glez MD
[2019-06-19 09:05] LABS: ALBUMIN 3.3 g/dL (3.5-5.0); CREATININE 1.4 mg/dL (0.7-1.2); PHOSPHORUS 3.4 mg/dL (2.7-4.5); POTASSIUM 4.3 mmol/L (3.5-5.1)
[2019-06-19] MEDS ORDERED: VISINE OPH DROPS BOTH EYES PRN (18:02)
[2019-06-20] MEDS: ROCEPHIN 1 GM in NS 50 ML IV SCH (01:00)
[2019-06-20] MEDS: PRILOSEC PO SCH (06:20)
--- NOTE | 2019-06-20 07:43 | PROGRESS NOTE ---
DATE: 06/20/2019 SUBJECTIVE: Patient reports pain in the left shoulder. Denies any trauma or fall. No more dizziness. OBJECTIVE: Vital Signs: Temperature 98 degrees, heart rate 61, respiratory rate 17, blood pressure 145/59, O2 saturation 93% on room air. General: This is an 78-year-old male lying in bed, in no acute distress. Cardiovascular: S1, S2 heard. No murmurs, gallops, or rubs. Regular rate and rhythm. Respiratory: Clear bilaterally to auscultation. No work of breathing or using accessory muscles. Abdomen: Soft. Nontender to palpation. Bowel sounds present. No organomegaly. Extremities: Left shoulder painful to palpation and painful to extension and flexion. Lower extremities: No clubbing, cyanosis, or edema. Peripheral pulses present in both legs. Neurological: The patient is alert, oriented x3. Moves 4 extremities. LABORATORY DATA: Pending at the time of my dictation. ASSESSMENT AND PLAN: 1. Dizziness. It looks like it was secondary to dehydration. Patient is according to the last set of orthostatic vitals, his blood pressure dropped from 136-103. Although there is no significant changes in the heart rate so I think at this point, we will continue to monitor this patient closely. We will continue with current management. 2. UTI. We will continue with Rocephin. 3. Hypertension. Blood pressure is much better controlled. We will continue with the same management. 4. Physical deconditioning. Physical therapy has been consulted and recommend to place this patient in a skilled facility. We will keep this patient over the weekend. We will see what we can do Saturday for him. 5. Disposition. Most likely this patient will need rehab facility. We will talk Saturday with social media marketing specialist. cc: Kristian Glez MD
[2019-06-20 08:19] LABS: BASO# 0.02 X1000 (0.0-0.2); BASO% 0.2 % (0.0-0.8); EOS# 0.41 X1000 (0.0-0.7); EOS% 3.9 % (0.0-10.0); HEMATOCRIT 42.2 % (42.0-52.0); HEMOGLOBIN 13.8 g/dL (14.0-18.0); IMM GRAN# 0.03 X1000 (0.0-0.04); IMM GRAN% 0.3 % (0.0-0.5); LYMPH# 2.81 X1000 (1.2-3.4); LYMPH% 26.9 % (20.5-51.1); MCH 28.2 PG (27-31); MCHC 32.7 g/dL (33-37); MCV 86.3 FL (81-99); MONO# 1.22 X1000 (0.11-0.59); MONO% 11.7 % (1.7-9.3); MPV 12.6 FL (7.4-10.4); NEUT# 5.95 X1000 (1.4-6.5); PLT 217 X1000 (130-400); RBC 4.89 XMIL (4.7-6.1); RDW 14.1 % (11.5-14.5); WBC 10.44 X1000 (4.8-10.8)
[2019-06-20 08:49] LABS: ALBUMIN 3.5 g/dL (3.5-5.0); CALCIUM 9.1 mg/dL (8.8-10.2); CREATININE 1.6 mg/dL (0.7-1.2); PHOSPHORUS 3.2 mg/dL (2.7-4.5); POTASSIUM 4.2 mmol/L (3.5-5.1)
[2019-06-20] MEDS: NORCO-10 PO PRN ×2 (09:08→16:54)
[2019-06-20] MEDS: MORPHINE IV PRN ×2 (09:09→14:52)
[2019-06-20] MEDS: NEURONTIN PO SCH ×5 (09:10→20:38)
[2019-06-20] MEDS: VASOTEC IV SCH ×2 (09:10→20:38)
[2019-06-20] MEDS: PROSCAR PO SCH (09:10)
[2019-06-20] MEDS: NORVASC PO SCH ×2 (09:10→20:38)
[2019-06-20] MEDS: TENORMIN PO SCH (09:11)
[2019-06-20] MEDS: ZYLOPRIM PO SCH (09:11)
[2019-06-20] MEDS: TORADOL IV SCH ×3 (09:16→20:38)
--- NOTE | 2019-06-20 10:39 | Diag Imaging Result Doc PS360 ---
EXAM: SHOULDER 1 VIEW LEFT INDICATION: shoulder pain TECHNIQUE: One view COMPARISON: None. FINDINGS: There is no discrete fracture, dislocation, or significant intrinsic osseous lesion. The visualized joint spaces are essentially unremarkable. The surrounding soft tissues are essentially unremarkable. IMPRESSION: No evidence of acute osseous abnormality. Electronically signed by Ander Horner 06/20/2019 10:37 AM
[2019-06-21] MEDS: ROCEPHIN 1 GM in NS 50 ML IV SCH (00:56)
[2019-06-21] MEDS: TORADOL IV SCH ×5 (00:56→20:41)
[2019-06-21] MEDS: PRILOSEC PO SCH (06:20)
--- NOTE | 2019-06-21 07:52 | PROGRESS NOTE ---
DATE: 06/21/2019 SUBJECTIVE: Patient reports that pain in the left shoulder is much better. The x-ray did not show any fracture. Reports no dizziness. OBJECTIVE: Vital Signs: Temperature 97.5 degrees, heart rate 50, respiratory rate 18, blood pressure 153/62, O2 saturation 96% on room air. General Examination: This is an 78-year-old, male, lying in bed, in no acute distress. Cardiovascular Examination: S1 and S2 heard. No murmurs, gallops, or rubs. Regular rate and rhythm. Respiratory Examination: Clear bilaterally to auscultation. No work of breathing or using accessory muscles. Abdomen: Soft, nontender to palpation. Bowel sounds present. No organomegaly. Extremities: No clubbing, cyanosis, or edema. Peripheral pulses present in both legs. Neurological Examination: The patient is alert and oriented x3. Moves 4 extremities. Laboratory Data: Pending at the time of my dictation. ASSESSMENT AND PLAN: 1. Dizziness. That condition is much better. We are going to check orthostatic vitals today and see how this patient does. We will do that every 12 hours. 2. Urinary tract infection. We will continue Rocephin. 3. Hypertension. Blood pressure is much better controlled. 4. Acute kidney injury. Creatinine has been getting a little worse. The only new medications that we have started was enalapril so we will stop that medication and check BMP daily. 5. Physical deconditioning. Apparently, as per physical therapy, this patient needs to go to a [facility] facility. We will keep this patient over the weekend and on Saturday, we will discuss with him about disposition. 6. Disposition. We will continue to monitor this patient closely. We will see on Saturday if he agreed to go to a rehab facility or not. cc: Kristian Glez MD
[2019-06-21] MEDS: NORVASC PO SCH ×2 (08:36→20:41)
[2019-06-21] MEDS: PROSCAR PO SCH (08:36)
[2019-06-21] MEDS: ZYLOPRIM PO SCH (08:36)
[2019-06-21] MEDS: NEURONTIN PO SCH ×4 (08:37→20:42)
[2019-06-21] MEDS: TENORMIN PO SCH (08:37)
[2019-06-21 09:06] LABS: POTASSIUM 4.9 mmol/L (3.5-5.1)
[2019-06-21 09:07] LABS: ALBUMIN 3.4 g/dL (3.5-5.0); CALCIUM 9.5 mg/dL (8.8-10.2); CREATININE 1.5 mg/dL (0.7-1.2); PHOSPHORUS 3.1 mg/dL (2.7-4.5)
[2019-06-21] MEDS: DULCOLAX PO SCH (16:51)
[2019-06-21] MEDS: MIRALAX PO SCH (20:41)
[2019-06-22] MEDS: ROCEPHIN 1 GM in NS 50 ML IV SCH (01:06)
[2019-06-22] MEDS: TORADOL IV SCH ×4 (01:45→22:02)
[2019-06-22] MEDS: PRILOSEC PO SCH (06:12)
[2019-06-22] MEDS: TENORMIN PO SCH (08:49)
[2019-06-22] MEDS: DULCOLAX PO SCH (08:49)
[2019-06-22] MEDS: NORVASC PO SCH (08:49)
[2019-06-22] MEDS: ZYLOPRIM PO SCH (08:49)
[2019-06-22] MEDS: MIRALAX PO SCH ×2 (08:50→22:02)
[2019-06-22] MEDS: NEURONTIN PO SCH ×4 (08:52→22:02)
[2019-06-22] MEDS: PROSCAR PO SCH (08:56)
[2019-06-22 09:51] LABS: ALBUMIN 3.6 g/dL (3.5-5.0); CREATININE 1.6 mg/dL (0.7-1.2); PHOSPHORUS 3.3 mg/dL (2.7-4.5); POTASSIUM 4.8 mmol/L (3.5-5.1)
[2019-06-22] MEDS ORDERED: PATIENT'S OWN MED PO PRN (09:56)
--- NOTE | 2019-06-22 10:25 | PROGRESS NOTE ---
DATE: 06/22/2019 SUBJECTIVE: The patient reports no dizziness. Left shoulder pain is much better. OBJECTIVE: Vital Signs: Temperature 99.1 degrees, heart rate 53, respiratory rate 17, blood pressure 122/50, O2 saturation 97% on room air. Orthostatic vital signs showed yesterday 122/50 blood pressure lying down, and standing 109/45. General: This is a 88-year-old, male, lying in bed in no acute distress. Cardiovascular: S1 and S2 heard. No murmurs, gallops, or rubs. Regular rate and rhythm. Respiratory: Clear bilaterally to auscultation. No work of breathing or using accessory muscles. Abdomen: Soft, nontender to palpation. Bowel sounds present. No organomegaly. Extremities: No clubbing, cyanosis, or edema. Peripheral pulses present in both legs. Neurological: The patient is alert and oriented x3. Moves all 4 extremities. LABORATORY DATA: Pending at the time of dictation. ASSESSMENT AND PLAN: 1. Dizziness. This condition is much better. Still having some orthostasis, so at this point, we are going to check orthostatics vitals tomorrow. We are going to stop Norvasc, and will change to lisinopril 10 mg by mouth twice daily and will see if that helps. 2. Urinary tract infection. At presentation, he was complaining of some dysuria, and the urinalysis showed some dirty urine, but the urine culture did not show any growth. He is on Rocephin day #5. Plan to complete 7 days of antibiotics. 3. Hypertension. Blood pressure is much better controlled. That was very high around 200 at presentation, but now is getting much better control. 4. Acute kidney injury. The patient has a little elevated creatinine, so will continue to monitor BMP daily. Will continue with lisinopril. 5. Physical deconditioning. As per first report from Physical Therapy, the patient needs to go to retirement facility. Will see the report from today to discuss with him if he needs to go to rehab or not. 6. Disposition. At this point, will continue to monitor this patient closely. If orthostatics are better tomorrow and if Physical Therapy recommends home health here, then he can be discharged tomorrow morning. cc: Kristian Glez MD
[2019-06-22] MEDS: FLOMAX PO SCH ×2 (11:17→22:01)
[2019-06-22] MEDS: PRINIVIL PO SCH (22:01)
[2019-06-23] MEDS: TORADOL IV SCH (01:07)
[2019-06-23] MEDS: ROCEPHIN 1 GM in NS 50 ML IV SCH (01:08)
[2019-06-23] MEDS: PRILOSEC PO SCH (05:59)
[2019-06-23] MEDS: NEURONTIN PO SCH ×3 (09:01→21:05)
[2019-06-23] MEDS: DULCOLAX PO SCH (09:01)
[2019-06-23] MEDS: PROSCAR PO SCH (09:01)
[2019-06-23] MEDS: TENORMIN PO SCH (09:01)
[2019-06-23] MEDS: ZYLOPRIM PO SCH (09:01)
[2019-06-23 09:02] LABS: ALBUMIN 3.2 g/dL (3.5-5.0); CALCIUM 8.9 mg/dL (8.8-10.2); CREATININE 1.6 mg/dL (0.7-1.2); PHOSPHORUS 3.4 mg/dL (2.7-4.5); POTASSIUM 5.3 mmol/L (3.5-5.1)
[2019-06-23] MEDS: PRINIVIL PO SCH (09:02)
[2019-06-23] MEDS: FLOMAX PO SCH ×2 (09:02→21:04)
[2019-06-23] MEDS: SINGULAIR PO SCH (09:02)
[2019-06-23] MEDS: MIRALAX PO SCH ×2 (09:02→21:06)
[2019-06-23] MEDS: NS 1,000 ML IV SCH (16:38)
--- NOTE | 2019-06-23 20:36 | PROGRESS NOTE ---
DATE: 06/23/2019 SUBJECTIVE: This morning Mr. Klein refers to be doing fairly okay. Still has some baseline dizziness when he was checked this morning. He was still orthostatic. His pulse has been low partly because I think he is on beta lina and probably that is why he is not mounting that much of a tachycardic response. His creatinine has been creeping up as well as his potassium. He is on lisinopril, so I have discontinued that.General: Mr. Klein is an 79-year-old gentleman. He is in bed, in no distress. Mucosa is pink and slightly dry. Anicteric. Acyanotic. Neck: Neck is supple. CHEST: Good air entry bilaterally. There were no crepitations, no rhonchi. Cardiovascular: Regular rate and rhythm. No murmurs, no rubs, no gallops. GI: Abdomen soft, nontender. Bowel sounds present. Extremities: No pedal edema. 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 He is able to move all extremities. He is however, remarkably weaker on the left lower extremity. He is not able to dorsiflex or plantar flex and this is from a previous damage he sustained to his lower back. His he does have some mild reduction in vibration sense in both lower extremities. LABORATORY DATA: No CBC for this morning. Chemistry shows potassium is 5.3, creatinine is 1.6. ASSESSMENT: 1. Dizziness with presyncopal episode most likely due to orthostatic hypotension. I have made changes to the patient's tamsulosin as well as the gabapentin which have potential to cause some of these symptoms. 2. Dysuria on admission with negative urine culture. I have discontinued the antibiotics. I think he has had enough. He has had a total of 6 days. 3. Uncontrolled hypertension. The patient was started back on lisinopril. He seems to be doing well. However, his creatinine is slightly elevated as well as his potassium, so I have discontinued this and started him back on his nor amlodipine at a lower dose. 4. Acute kidney injury. 5. Generalized weakness with physical deconditioning. Physical therapy has been consulted. 6. History of benign prostatic hypertrophy. The patient is on tamsulosin and finasteride. We have cut back on the tamsulosin to only once per day and to take it at night to prevent possible orthostatic hypotension side effects. cc: Jarvis Perry MD
[2019-06-23] MEDS: NORVASC PO SCH (21:04)
[2019-06-24] MEDS: PRILOSEC PO SCH (06:18)
[2019-06-24] MEDS: NS 1,000 ML IV SCH ×2 (06:18→18:13)
[2019-06-24] MEDS: NORVASC PO SCH ×2 (08:10→21:24)
[2019-06-24] MEDS: DULCOLAX PO SCH (08:10)
[2019-06-24] MEDS: PROSCAR PO SCH (08:10)
[2019-06-24] MEDS: ZYLOPRIM PO SCH (08:10)
[2019-06-24] MEDS: NEURONTIN PO SCH ×2 (08:10→21:25)
[2019-06-24] MEDS: SINGULAIR PO SCH (08:10)
[2019-06-24] MEDS: TENORMIN PO SCH (08:11)
[2019-06-24] MEDS: MIRALAX PO SCH ×2 (08:41→21:24)
[2019-06-24 09:16] LABS: ALBUMIN 3.3 g/dL (3.5-5.0); CALCIUM 9.1 mg/dL (8.8-10.2); CREATININE 1.3 mg/dL (0.7-1.2); PHOSPHORUS 3.3 mg/dL (2.7-4.5); POTASSIUM 4.6 mmol/L (3.5-5.1)
--- NOTE | 2019-06-24 17:00 | PROGRESS NOTE ---
DATE: 06/24/2019 SUBJECTIVE: This morning Mr. Klein refers to be doing well. Denies any new complaints. He said he has not had any more dizziness. However, review of the chart still shows that he has been positive on orthostatics. OBJECTIVE: Vital signs: His blood pressure supine was 180/68 with a pulse of 66, sitting blood pressure systolic was 177/64 with a pulse of 59, standing systolic blood pressure is 132/57 with a pulse of 64. Temperature is 98.3 degrees, saturating 98% on room air. General: Mr. Klein is an 79-year-old gentleman. He is in bed, no distress. HEENT: Mucosa is pink and moist. Anicteric. Acyanotic. Neck: Supple. Chest: Good air entry bilateral. There were no crepitations, no rhonchi. Cardiovascular: Regular rate and rhythm. No murmurs. No rubs. No gallops. GI: Abdomen is soft, nontender. Bowel sounds were present. Extremities: No pedal edema. Distal pulses present. 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 He slightly weaker on the left lower extremity distally. LABORATORY DATA: The patient's creatinine is down to 1.3. Potassium has normalized. Albumin is 3.2. Blood cultures as well as urine cultures have all been negative. Flu screening was negative. ASSESSMENT: 1. Dizziness with presyncopal episode secondary to orthostatic hypotension. Home medications have been refined. 2. Uncontrolled hypertension. We will continue to titrate the patient's blood pressure medications. 3. Acute kidney injury, improving. Creatinine is down to 1.3. We will continue with IV fluids. Lisinopril has been withheld. 4. Generalized weakness and physical deconditioning. Physical therapy has been consulted. Patient is doing well. 5. Clinical volume depletion. Will continue with the IV fluids. 6. History of benign prostatic hypertrophy. Patient is on finasteride and tamsulosin. We have discontinued the daily dose of the tamsulosin and kept the night dose. PLAN: So in general, I think Mr. Klein is doing well. He still remains orthostatic but not symptomatic. He seems to have done pretty well with physical therapy today. We are going to continue with IV fluids to see if we can normalize his kidney functions and also hydrate him well before he gets discharged hopefully tomorrow. cc: Jarvis Perry MD
[2019-06-24] MEDS: NORCO-10 PO PRN (21:25)
[2019-06-24] MEDS: FLOMAX PO SCH (21:25)
[2019-06-25] MEDS: PRILOSEC PO SCH (06:26)
[2019-06-25 08:23] LABS: HEMATOCRIT 40.3 % (42.0-52.0); HEMOGLOBIN 13.1 g/dL (14.0-18.0); MCH 28.5 PG (27-31); MCHC 32.5 g/dL (33-37); MCV 87.8 FL (81-99); MPV 12.8 FL (7.4-10.4); RBC 4.59 XMIL (4.7-6.1); RDW 14.7 % (11.5-14.5); WBC 8.37 X1000 (4.8-10.8)
[2019-06-25 08:45] LABS: ALBUMIN 3.6 g/dL (3.5-5.0); CREATININE 1.3 mg/dL (0.7-1.2); MAGNESIUM 1.6 mg/dL (1.5-2.7); PHOSPHORUS 3.2 mg/dL (2.7-4.5); POTASSIUM 4.7 mmol/L (3.5-5.1)
[2019-06-25] MEDS: NEURONTIN PO SCH (09:55)
[2019-06-25] MEDS: ZYLOPRIM PO SCH (09:55)
[2019-06-25] MEDS: TENORMIN PO SCH (09:56)
[2019-06-25] MEDS: NORVASC PO SCH (09:56)
[2019-06-25] MEDS: SINGULAIR PO SCH (09:56)
[2019-06-25] MEDS: PROSCAR PO SCH (09:56)
[2019-06-25 11:38] VITALS: BP 170/61
[2019-06-25] MEDS: DULCOLAX PO SCH (12:15)
[2019-06-25] MEDS: MIRALAX PO SCH (12:16)
[2019-06-25] MEDS: NS 1,000 ML IV SCH (12:16)
--- NOTE | 2019-06-26 23:52 | DISCHARGE SUMMARY ---
ADMISSION DATE: 06/16/2019 DISCHARGE DATE: 06/25/2019 DISPOSITION: Home. FOLLOW-UP: Dr. Marroquin. CONSULTATION DURING THIS ADMISSION: None. INVASIVE PROCEDURES DONE DURING THIS ADMISSION: None. IMAGING STUDIES OF SIGNIFICANCE: 1. A CT scan of the head shows mild white matter microangiopathy. 2. Chest x-ray showed no acute abnormality. 3. Carotid Doppler ultrasound showed no evidence of hemodynamically significant lesion. 4. Echocardiogram showed an ejection fraction of 65%. 5. Shoulder x-ray showed no evidence of acute disease. ADMISSION DIAGNOSES: 1. Dizziness/weakness. 2. Elevated troponins. 3. Leukocytosis. 4. Urinary tract infection. 5. Urine retention. DIAGNOSES AT THE TIME OF DISCHARGE: 1. Dizziness with presyncopal episode secondary to orthostatic hypotension. 2. Generalized weakness. 3. Clinical volume depletion, improved. 4. Acute kidney injury, improving. 5. History of BPH with some urinary retention. DISCHARGE MEDICATIONS: 1. Simvastatin 80 mg p.o. at bedtime. 2. Montelukast 10 mg p.o. daily. 3. Omeprazole 40 mg p.o. daily. 4. Cialis 5 mg p.o. p.r.n. 5. Allopurinol 30 mg p.o. daily. 6. Atenolol 50 mg p.o. daily. 7. MiraLAX. 8. Amlodipine 5 mg b.i.d. 9. Proscar 5 mg p.o. daily. 10. Tamsulosin 0.4 mg p.o. at bedtime. 11. Gabapentin 200 mg b.i.d. PRESENTING COMPLAINT: Dizziness. HISTORY OF PRESENTING COMPLAINT: Mr. Klein is an 79-year-old elderly gentleman who presented to the emergency department because of dizziness, which has been going on for over a week. The patient refers that he gets more dizzy especially from sitting position to a standing position every now and then that even makes him feel like he is going to pass out. Upon presenting to the emergency room, he was evaluated, initially was found to be volume depleted and positive on orthostatic vitals. Mr. Klein was admitted for further medical studies for medical management. HOSPITAL COURSE: Mr. Klein was admitted to the medical floor. His medications with potential side effect of dizziness were all withheld including the gabapentin and tamsulosin. He was also adequately hydrated over the course of the hospital course and he was evaluated by physical therapy. During the hospital course, Mr. Klein continues to improve and despite he still remains slightly orthostatic on his vitals, he did not have any more symptoms. We have changed his tamsulosin to be taken only at night and we have reduced his gabapentin. He has been walking very well with physical therapy during the hospital course and no symptoms. His creatinine has improved from 1.7 on admission to 1.3. He has been advised to continue adequate oral hydration and follow up with primary care doctor. All the discharge instructions have been discussed with him and he voiced understanding. At the time of the discharge, the patient vitals show blood pressure is 170/61, pulse of 50, respiration is 18, temperature is 98.3 degrees. The patient was saturating 97% on room air. Time spent for discharge is 35 minutes. cc: Jarvis Perry MD
== END 2019-06-25 14:46 | disposition home health service (06) | DRG 641 ==
LOC: ED 11:50 → EDIPHOLD 22:49 → SUATTDRO 22:49 → 3N 06-17 15:05
PROVIDERS: ATTEND Internal Medicine